=== PATIENT | male | born 1955 | race Caucasian/White ===

== ENCOUNTER 2019-08-01 09:24 | Emergency (ER) | payer BC ==
[2019-08-01] MEDS ORDERED: Lidocaine 2% 20 ML MDV SUBCUT ONE (09:59)
--- NOTE | 2019-08-01 10:07 | EDM.PDOC ---
ED HPI GENERAL MEDICAL PROBLEM - General Chief Complaint: Upper Extremity Injury/Pain Stated Complaint: POSSIBLE INFECTION IN L MIDDLE FINGER Time Seen by Provider: 08/01/19 09:55 Source of Information: Reports: Patient, Old Records, RN History Limitations: Reports: No Limitations - History of Present Illness INITIAL COMMENTS - FREE TEXT/NARRATIVE: 63 yo male here with an infected finger. Was seen in the clinic recently for this and placed on an antibiotic orally(Bactrim and Keflex). He was told if not improving to return. When he called today to schedule the recheck he was told to go to the ER. Has pressure/throbbing pain. No fever. No drainage. 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 (see below) ( on Bactrim/Septra and Keflex) Left Finger-Middle Pain Score (Numeric/FACES): 9 - Related Data Allergies Allergy/AdvReac Type Severity Reaction Status Date / Time aspirin Allergy Bleeding Verified 08/01/19 09:47 Penicillins Allergy Other Verified 08/01/19 09:46 Home Meds: Home Meds Sulfamethoxazole/Trimethoprim [Bactrim Ds Tablet] 1 tab PO BID 08/01/19 [History ] atorvaSTATin [Lipitor] 1 tab PO BEDTIME 08/01/19 [History] cephALEXin [Keflex] 1 cap PO BID 08/01/19 [History] Past Medical History HEENT History: Reports: Impaired Vision Cardiovascular History: Reports: High Cholesterol Musculoskeletal History: Reports: Fracture Hematologic History: Reports: Other (See Below) Other Hematologic History: Von Willebrand Social & Family History - Tobacco Use Smoking Status *Q: Heavy Tobacco Smoker Years of Tobacco use: 45 Packs/Tins Daily: 1 - Caffeine Use Caffeine Use: Reports: Coffee Other Caffeine Use: 4-5 cups per day - Recreational Drug Use Recreational Drug Use: No Review of Systems - Review of Systems Review Of Systems: See Below Constitutional: Reports: No Symptoms Musculoskeletal: Reports: Hand Pain (L long finger) Skin: Reports: Erythema (distal L long finger) ED EXAM, GENERAL - Physical Exam Exam: See Below Exam Limited By: No Limitations General Appearance: Alert, WD/WN, No Apparent Distress Extremities: Increased Warmth, Redness (distal L long finger), Other ( paronychia with substantial swelling/pus adjacent to fingernail) Neurological: Alert, Oriented, CN II-XII Intact, Normal Cognition, No Motor/ Sensory Deficits Skin Exam: Warm, Dry, Intact, No Rash, Erythema (distal L long finger), Other ( local swelling distal L long finger.) ED TRAUMA EXTREMITY PROCEDURES - I&D Site: distal L long finger Skin Prep: Other (Cloro-Prep) Local Anesthesia: Lidocaine: 2% Plain Local Anesthetic Volume: 5cc Area Incised With: 11 Blade Drainage: Purulent Probed to Break Up Loculations: No Complications: No Progress/Comments: Culture obtained. Course - Vital Signs Last Recorded V/S: Last Vital Signs Temp 36.6 C 08/01/19 09:45 Pulse 75 08/01/19 09:45 Resp 18 08/01/19 09:45 BP 141/94 H 08/01/19 09:45 Pulse Ox 97 08/01/19 09:45 - Orders/Labs/Meds Orders: Active Orders 24 hr Category Date Time Status CULTURE ANAEROBIC [RM] Stat Lab 08/01/19 10:21 Ordered CULTURE WOUND + SMEAR [RM] Stat Lab 08/01/19 10:12 Ordered Meds: Medications Discontinued Medications Generic Name Dose Route Start Last Admin Trade Name Gisel PRN Reason Stop Dose Admin Lidocaine HCl 6 ml 08/01/19 09:59 08/01/19 10:06 Xylocaine 2% SUBCUT 08/01/19 10:00 6 ml ONETIME ONE Administration Departure - Departure Time of Disposition: 10:30 Disposition: Home, Self-Care 01 Condition: Fair Clinical Impression: Paronychia of finger of left hand, Encounter for incision and drainage procedure - Discharge Information *PRESCRIPTION DRUG MONITORING PROGRAM REVIEWED*: No *COPY OF PRESCRIPTION DRUG MONITORING REPORT IN PATIENT KYLEE: No Referrals: Turner Kirkland MD [Primary Care Provider] - Forms: ED Department Discharge Additional Instructions: Warm soaks several times per day. Take acetaminophen and/or ibuprofen as needed for pain relief. Stop your Keflex(cephalexin) and start clindamycin as directed. Recheck on Monday in the clinic if possible. - My Orders Last 24 Hours: My Active Orders 08/01/19 10:12 CULTURE WOUND + SMEAR [RM] Stat 08/01/19 10:21 CULTURE ANAEROBIC [RM] Stat - Assessment/Plan Last 24 Hours: My Active Orders 08/01/19 10:12 CULTURE WOUND + SMEAR [RM] Stat 08/01/19 10:21 CULTURE ANAEROBIC [RM] Stat
== END 2019-08-01 10:32 | disposition home or self-care (01) ==
LOC: JP.ED 09:24
DX: L03.012 Cellulitis of left finger (principal); E78.00 Pure hypercholesterolemia, unspecified; F17.210 Nicotine dependence, cigarettes, uncomplicated; Z88.6 Allergy status to analgesic agent; Z88.0 Allergy status to penicillin; Z79.899 Other long term (current) drug therapy
CPT/HCPCS: 10060; 87070; 87075; 87077; 87205; 99283; J2001

== ENCOUNTER 2021-11-04 07:05 | Day surgery (SDC) | payer BC, MEDICARE ==
[2021-11-04] MEDS: Sodium Chloride 0.9% 1,000 ML IV SCH (07:22)
[2021-11-04] MEDS ORDERED: Propofol 200 MG/20 ML SDV ONE ×2 (07:23→09:02)
[2021-11-04] MEDS ORDERED: Midazolam 1 MG/ML 2 ML SDV ONE (07:23)
[2021-11-04] MEDS ORDERED: fentaNYL 100 MCG/2 ML SDV ONE (07:23)
== END 2021-11-04 10:17 | disposition home or self-care (01) ==
LOC: JP.SDS 07:05
PROVIDERS: ATTEND Surgery
DX: Z12.11 Encounter for screening for malignant neoplasm of colon (principal); K63.5 Polyp of colon; F17.200 Nicotine dependence, unspecified, uncomplicated; E66.9 Obesity, unspecified; Z88.8 Allergy status to other drugs, medicaments and biological substances; Z88.0 Allergy status to penicillin; Z68.29 Body mass index [BMI] 29.0-29.9, adult
CPT/HCPCS: J2250; J2704; J3010; J7030